=== PATIENT | female | born 1995 | race Hispanic/Latino ===

== ENCOUNTER 2017-08-14 17:14 | Emergency (ER) | payer BC, MEDICAID | END 2017-08-14 18:12 | disposition home or self-care (01) | LOC: EDH 17:14 | DX: G89.29 Other chronic pain (principal); M25.561 Pain in right knee | CPT/HCPCS: 99281 ==

== ENCOUNTER 2017-11-06 22:55 | Emergency (ER) | payer BC | END 2017-11-07 00:46 | disposition home or self-care (01) | LOC: EDH 22:55 | DX: S93.692A Other sprain of left foot, initial encounter (principal); X58.XXXA Exposure to other specified factors, initial encounter; Y93.89 Activity, other specified; Y92.098 Other place in other non-institutional residence as the place of occurrence of the external cause; Y99.8 Other external cause status | CPT/HCPCS: 73620 ==

== ENCOUNTER 2024-12-20 21:17 | Emergency (ER) | payer BC, OTHER ==
[~2024-12-20] VITALS: Ht 170.2 cm; Wt 77.1 kg
--- NOTE | 2024-12-20 21:21 | NUR ---
COVID, FLU AND STREP SWABS COLLECTED AND SENT
[2024-12-20 21:43] LABS: RAPID GROUP A STREP negative (NEGATIVE)
[2024-12-20 21:48] LABS: SARS-CoV-2, RNA, NAAT NEGATIVE SARS CoV-2 (NEGATIVE)
--- NOTE | 2024-12-20 21:49 | ERN ---
ED Note History of Present Illness Stated Complaint: BODY ACHE, SORE THROAT,COUGH Chief Complaint: Flu Symptoms Time Seen by MD: 21:18 Time Seen by Midlevel: 21:25 Dictation: Ms. Jacques is a 29-year-old female with no reported chronic health issues who presented to the emergency department for evaluation of a flu symptoms. She reports one week of fatigue, general weakness, body aches, frequent urination, dry cough, and sore throat. She states she is concerned she may be as well. She has taken no [id number] medications for her symptoms. She denies having fever, chills, shortness of breath, chest pain, palpitations, abdominal pain, nausea, vomiting, diarrhea, dysuria, headache, or dizziness. Allergies: Coded Allergies: No Known Allergies (Unverified Allergy, Unknown, 12/20/24) Emergency Care COUNTY AUDITOR: None Past Medical History Past Medical History: No Pertinent History Surgical History: None PSYCH History: no pertinent psych hx Social History: Negative, Lives with family RN Note Reviewed/Agreed w/PFSH: Yes Review of System Dictation REVIEW OF SYSTEMS: CONSTITUTIONAL: Patient denies fevers, chills, sweats and weight changes. Reports fatigue and general weakness. EYES: Patient denies any visual symptoms. EARS, NOSE, AND THROAT: No difficulties with hearing. No symptoms of rhinitis denies difficulty swallowing. reports sore throat. Reports hoarse voice CARDIOVASCULAR: Patient denies chest pains, palpitations, orthopnea and paroxysmal nocturnal dyspnea. RESPIRATORY: No dyspnea on exertion, no wheezing reports nonproductive cough. GI: No nausea, vomiting, diarrhea, constipation, abdominal pain, hematochezia or melena. : No urinary hesitancy or dribbling. No nocturia.. No abnormal urethral di scharge. Reports frequent urination MUSCULOSKELETAL: Reports body aches NEUROLOGIC: No chronic headaches, no seizures. Patient denies numbness, tingling or weakness. PSYCHIATRIC: Patient denies problems with mood disturbance. No problems with anxiety. ENDOCRINE: No excessive urination or excessive thirst. DERMATOLOGIC: Patient denies any rashes or skin changes. Initial Vital Sign VS Vital Signs Date Time Temp Pulse Resp B/P (MAP) Pulse Ox O2 Delivery O2 Flow Rate FiO2 12/20/24 21:17 98.8 90 20 131/79 98 Room Air 12/20/24 22:23 0 21 Physical Exam Dictation Vital signs: Reviewed. Afebrile Constitutional: No acute distress. Non-toxic appearing. Head/Face: Normocephalic, atraumatic. Eyes: Periorbital areas with no swelling, redness, or edema. Lids and lashes are normal. Conjunctival injection is absent. Sclera anicteric. Pupils equal, round, reactive to light. ENT: Pinnas intact and no signs of trauma or erythema. Ear canals clear and no discharge. TMs no erythema. No nasal discharge or bleeding noted. Oropharynx with no= swelling, masses, exudates, or evidence of obstruction. Uvula midline. Throat with erythema; no exudate Mucous membranes dry. Lips cracked. Neck: Trachea midline, no masses palpated, and no cervical lymphadenopathy. No swelling. Supple, full range of motion. Chest/Axilla: No tenderness, no crepitus, no paradoxical movement, no retractions. Cardiovascular: Regular rate, regular rhythm, no murmur, no gallops. Symmetric pulses. No peripheral edema. Normotensive. Respiratory: Respirations even and unlabored. Lung sounds clear; no wheezes, rales or rhonchi. Room air SpO2 98% Gastrointestinal: Inspection is normal. No distention is appreciated. Bowel sounds are normal. No mass or organomegaly . There is no tenderness. No rebound. No rigidity. No voluntary or involuntary guarding. No Figueroa's sign. : negative CVA tenderness bilaterally. Neurological: Normal speech, gross motor function intact, gross sensory function intact. No focal weakness/Paresthesia. Musculoskeletal/Extremities: All extremities have full range of motion, no pain or tenderness on palpation. Symmetric pulses. Integumentary: Intact. Skin is normal color, warm and dry. Cap refill less than 2 seconds. Results (Laboratory/Radiology) Laboratory/Radiology Laboratory Tests Test 12/20/24 21:22 12/20/24 21:45 Influenza Type A Antigen Negative For Type A Influenza Type B Antigen Negative For Type B SARS-CoV-2, RNA, NAAT NEGATIVE SARS CoV-2 Group A Streptococcus Rapid negative (NEGATIVE) Urine Color YELLOW (YELLOW) Urine Appearance CLOUDY (CLEAR) H Urine pH 6.5 (5.0-8.0) Urine Specific [place] 1.030 (1.001-1.031) Urine Protein 50 mg/dL (NEGATIVE) H Urine Glucose (UA) NEGATIVE mg/dL (NEGATIVE) Urine Ketones NEGATIVE mg/dL (NEGATIVE) Urine Occult Blood SMALL (NEGATIVE) H Urine Nitrate NEGATIVE (NEGATIVE) Urine Bilirubin NEGATIVE mg/dL (NEGATIVE) Urine Urobilinogen 3 mg/dL (0.2-1.0) H Urine Leukocyte Esterase 75 Kyree/uL (NEGATIVE) H Urine RBC 11-25 /HPF (0-1) H Urine WBC 2-5 /HPF (0-1) H Urine Squamous Epithelial Cells FEW /HPF (0-2) Urine Bacteria None /HPF (None Seen) Urine HCG, Qualitative NEGATIVE (NEGATIVE) ED Course ED Course Orders Procedure Category Date Status Time Covid Rna Naat LAB 12/20/24 Complete 21:21 Influenza Type A & B, LAB 12/20/24 Complete Rapid 21:21 Rapid (Group A Strep) LAB 12/20/24 Complete 21:21 ,Urine Test LAB 12/20/24 Complete 21:45 Acetaminophen 325 Tab PHA 12/20/24 Complete (Tylenol 325mg Tab 22:00 Urinalysis LAB 12/20/24 Complete W/Microscopic 21:45 Culture Urine SUKHWINDER 12/20/24 In Process 22:22 Current Medications Medications (Trade) Dose Ordered Sig/Brodie Route PRN Reason Start Time Stop Time Status Last Admin Dose Admin Acetaminophen (TYLenol 325MG TAB) 650 mg ONCE ONCE PO 12/20/24 22:00 12/20/24 22:01 DC 12/20/24 21:52 Vital Signs Date Time Temp Pulse Resp B/P (MAP) Pulse Ox O2 Delivery O2 Flow Rate FiO2 12/20/24 22:23 98.8 88 16 130/76 98 Room Air* 0 21 12/20/24 21:17 98.8 90 20 131/79 98 Room Air Uneventful ED course. Vital signs remained stable; normotensive and afebrile with room air SpO2 98%. Influenza A/B, strep, and COVID are all negative. U hCG negative. UA cloudy; + protein, leukocyte estersae, blood, and WBC 2-5. While in ED she received doses of Tylenol for discomfort as well as initial dose of antibiotics; Rocephin. Findings were discussed with patient and all questions were answered. Medical Decision Making MDM MDM: Differential diagnosis: Influenza, strep, COVID , UTI Rationale: Tests considered and ordered secondary to shared decision making include: Lab Previous outside records reviewed: Old ER visits. Risk of complication and/or morbidity or mortality of patient management: None Medications-Per medication reconciliation Need for hospitalization: Patient does not meet criteria for hospitalization. Need for emergency major/minor surgery: No There are no social concerns with this patient. Prescription drug management: OTC Tylenol, cephalexin Prescriptions will include symptomatic care Patient's prior external medical records from other ER visits were reviewed by me as indicated. Prior testing and results from previous visits were reviewed. Prior tests were taken into account with medical decision making and resource utilization, independent historian/historians were used to obtain complete medical history. I independently interpreted the test that were performed, results were reviewed by me and considered findings on radiology if ordered. Medical management and examination interpretation discussions were had by me with other qualified healthcare professionals as indicated for the patient's care. DX & DISP Disposition: Discharge Departure Condition: Stable Scripts Cephalexin (Cephalexin) 500 Mg Capsule 1 CAP PO BID for 10 Days, #20 CAP 0 Refills Prov: SHAGGY COUGHLIN NP 12/20/24 Additional Instructions: Take full course of antibiotic, cephalexin, even if you start to feel better. Drink plenty of water to help flush the bacteremia from urinary tract. May take [id number] Tylenol as needed for discomfort. Symptoms should improve in t he next 1-2 days. Follow up with your PCP next week. Return to the emergency department if there is any worsening symptoms to include uncontrolled fever, chills, flank back pain, nausea, or vomiting. Referrals: JALEN HUGHES (PCP) Time of Disposition: 22:33 SHAGGY COUGHLIN NP December 20, 2024 21:49
[2024-12-20] MEDS: acetaMINOPHEN 325 MG TAB PO ONE (21:52)
[2024-12-20 21:53] LABS: INFLUENZA TYPE A Negative For Type A (NEGATIVE); INFLUENZA TYPE B Negative For Type B (NEGATIVE)
[2024-12-20 22:10] LABS: HCG,QUALITATIVE URINE NEGATIVE (NEGATIVE)
[2024-12-20 22:22] LABS: APPEARANCE,URINE CLOUDY (CLEAR); BILIRUBIN,URINE NEGATIVE (NEGATIVE); COLOR,URINE YELLOW (YELLOW); GLUCOSE, URINE (UA) NEGATIVE (NEGATIVE); KETONES,URINE NEGATIVE (NEGATIVE); LEUKOCYTE ESTERASE ,URINE 75 Leu/uL (NEGATIVE); MUCUS,URINE MANY LPF (None Seen); NITRATE,URINE NEGATIVE (NEGATIVE); OCCULT BLOOD,URINE SMALL (NEGATIVE); PH,URINE 6.5 (5.0-8.0); PROTEIN,URINE 50 mg/dL (NEGATIVE); SQUAMOUS EPITHELIAL CELL,UR FEW /HPF (0-2); UROBILINOGEN,URINE 3 mg/dL (0.2-1.0)
[2024-12-20 22:23] VITALS: BP 130/76; PULSE 88; RESP 16; TEMP 98.8; O2SAT 98
[2024-12-20] MEDS ORDERED: CEPH500C2 PO (22:32)
[2024-12-20] MEDS: cefTRIAXone 1G VIAL IM ONE (22:43)
== END 2024-12-20 23:00 | disposition home or self-care (01) ==
LOC: EDH 21:17
DX: J02.9 Acute pharyngitis, unspecified (principal); R05.9 Cough, unspecified; R53.83 Other fatigue; R53.1 Weakness; Z20.822 Contact with and (suspected) exposure to COVID-19
CPT/HCPCS: 99283; 87635; 87086; 87880; 87804 ×2; 81001; 81025; 96372; J0696